=== PATIENT | female | born 1945 | race Hispanic/Latino ===

== ENCOUNTER → 2024-09-15 | Outpatient (CLI) | payer OTHER ==
--- NOTE | 2024-09-15 10:56 | HMCIMG ---
DEXA BONE DENSITY SURVEY HISTORY: Endocarditis COMPARISON: None FINDINGS: Bone densitometry study was performed. Bone mineral density of the lumbar spine is 0.892 gram per centimeter square which corresponds to a T score of -1.4 and a Z score of 1.1. Bone mineral density of the left hip is 0.999 grams per centimeter square which corresponds to a T score of 0.3 and a Z score of 2.2. IMPRESSION: 1. Osteopenia of the lumbar spine and normal bone mineral density of left hip.
== END | disposition home or self-care (01) ==
LOC: RAH 09:37
PROVIDERS: ATTEND Internal Medicine
DX: Z13.820 Encounter for screening for osteoporosis (principal); I38 Endocarditis, valve unspecified; M85.88 Other specified disorders of bone density and structure, other site; Z78.0 Asymptomatic menopausal state
CPT/HCPCS: 77080